=== PATIENT | male | born 1995 | race Two or more races ===

== ENCOUNTER 2021-01-26 22:08 | Emergency (ER) | payer MEDICAID, OTHER ==
[~2021-01-26] VITALS: Ht 172.7 cm; Wt 81.6 kg
--- NOTE | 2021-01-26 22:15 | NUR ---
PT [id number] FROM HOME +ETOH AND POSSIBLE DRUGS, GIVEN NARCAN 2MG IM AND 2MG IVP TAILER IN, XB=[id number], AROUSABLE TO PAINFUL STIMULI. BP ELEVATED 155/100. NON LABORED BREATHING
--- NOTE | 2021-01-26 22:56 | NUR ---
UPHOLSTERY RESTORER AT BEDSIDE FOR LABS.
[2021-01-26 22:59] LABS: BASOPHILS % (AUTO) 0.1 % (0.0-2.0); EOSINOPHILS % (AUTO) 0.1 % (0.0-6.0); HEMATOCRIT 47 % (39-51); HEMOGLOBIN 15.7 g/dL (13.5-17.5); LYMPHOCYTES # (AUTO) 0.8 K/uL (0.8-4.8); LYMPHOCYTES % (AUTO) 3.1 % (20.0-44.0); MEAN CORPUSCULAR HGB CONC 33 g/dl (31.0-36.0); MEAN CORPUSCULAR VOLUME 92 fL (80-96); MONOCYTES # (AUTO) 1.6 K/uL (0.1-1.30); MONOCYTES % (AUTO) 6.5 % (2.0-12.0); NEUTROPHILS # (AUTO) 22.4 K/uL (1.8-8.9); NEUTROPHILS % (AUTO) 90.2 % (43.0-81.0); PLATELET COUNT (AUTO) 359 K/uL (150-450); RED BLOOD CELL COUNT(AUTO) 5.09 MIL/uL (4.5-6.0); WHITE BLOOD COUNT (AUTO) 24.9 K/uL (4.3-11.0)
[2021-01-26] MEDS ORDERED: IV NS 0.9% 1,000 ML BAG IV ONE (23:00)
[2021-01-26 23:07] LABS: CARBON DIOXIDE 23 mmol/L (21-32); CHLORIDE 102 mmol/L (98-107); CREATININE 1.4 mg/dL (0.6-1.3); GLUCOSE 274 mg/dL (74-106); POTASSIUM 3.3 mmol/L (3.5-5.1); SODIUM SERUM 140 mmol/L (136-145); UREA NITROGEN, BLOOD 12 mg/dL (7-18)
[2021-01-26 23:15] LABS: ALANINE AMINOTRANSFERASE 102 U/L (12-78); ALBUMIN 4.3 g/dL (3.4-5.0); ALCOHOL, BLOOD < 3 mg/dL (0-0); ALKALINE PHOSPHATASE 97 U/L (46-116); ASPARTATE AMINOTRANSFERASE 62 U/L (15-37); BILIRUBIN,DIRECT 0.1 mg/dL (0.0-0.2); BILIRUBIN,TOTAL 0.4 mg/dL (0.2-1.0); TOTAL PROTEIN, SERUM 8.1 g/dL (6.4-8.2)
[2021-01-26 23:17] LABS: ACETAMINOPHEN 0 ug/ml (10-30)
--- NOTE | 2021-01-26 23:20 | NUR ---
URINE COLLECTED AND SENT TO LAB
[2021-01-26 23:38] LABS: BILIRUBIN,URINE SMALL (NEGATIVE); COLOR,URINE DARK YELLOW (YELLOW); LEUKOCYTE ESTERASE ,URINE Negative (NEGATIVE); NITRITE, URINE Negative (NEGATIVE); PROTEIN,URINE 30 mg/dl (NEGATIVE); UGLUCOSE 500 MG/DL mg/dL (NEGATIVE); UROBILINOGEN,URINE 0.2 EU/dL (0.2)
[2021-01-26 23:53] LABS: BAND % (MANUAL) 4 % (0.0-5.0); BASOPHILS % (MANUAL) 0 % (0.0-2.0); EOSINOPHILS % (MANUAL) 0 % (0-4); LYMPHOCYTES % (MANUAL) 3 % (16-48); MONOCYTES % (MANUAL) 5 % (0-11.0); NEUTROPHILS % (MANUAL) 89 (42-76)
[2021-01-26 23:54] LABS: THYROID STIMULATING HORMONE 3.611 uIU/mL (0.358-3.74)
[2021-01-27] MEDS ORDERED: IV LR 1000 ML 1,000 ML IV ONE (04:00)
[2021-01-27] MEDS ORDERED: NALO4SPR NS (04:04)
--- NOTE | 2021-01-27 04:26 | NUR ---
PT AWAKE ALERT AND ORIENTED X3.
[2021-01-27 04:50] VITALS: BP 125/75
--- NOTE | 2021-01-27 04:50 | NUR ---
Patient discharged to home in stable condition. Written and verbal after care instructions given. Patient verbalizes understanding of instruction.
== END 2021-01-27 04:51 | disposition home or self-care (01) ==
LOC: ER 22:11
DX: T40.601A Poisoning by unspecified narcotics, accidental (unintentional), initial encounter (principal); D72.829 Elevated white blood cell count, unspecified; R73.9 Hyperglycemia, unspecified; R81 Glycosuria; Y92.89 Other specified places as the place of occurrence of the external cause
CPT/HCPCS: 36415; 80048; 80076; 80143; 80307; 80320; 81003; 84443; 85007; 85025; 93005; 96360; 96361; 99285; J7120 ×2; G0480